=== PATIENT | female | born 1950 | race Asian ===

== ENCOUNTER → 2020-05-03 13:51 | Outpatient (BNVA) | payer MEDICARE, SELFPAY | PROVIDERS: PCP Internal Medicine; Referring Provider Internal Medicine; Visit Provider Orthopaedic Surgery | DX: M17.11 Unilateral primary osteoarthritis, right knee (principal) | CPT/HCPCS: 99212 ==

== ENCOUNTER 2020-05-24 12:41 | Outpatient (REF) | payer MEDICARE, SELFPAY ==
[2020-05-24 14:20] LABS: Estimated Average Glucose 171 mg/dL; Hemoglobin A1c % 7.6 %
== END 2020-05-24 12:42 | disposition home or self-care (01) ==
LOC: HO.HMGCLDS 12:41
PROVIDERS: PCP Internal Medicine; Visit Provider Orthopaedic Surgery
DX: Z01.812 Encounter for preprocedural laboratory examination (principal)
CPT/HCPCS: 83036

== ENCOUNTER 2020-08-03 09:47 | Outpatient (REF) | payer MEDICARE, SELFPAY ==
[2020-08-03 11:24] LABS: MANUAL DIFF FLAG NO
[2020-08-03 11:38] LABS: Basophils Absolute Auto 0.1 X10*3/uL (0.0-0.2); Basophils Percent Auto 1.7 % (0-2); Eosinophils Absolute Auto 0.3 X10*3/uL (0.0-0.4); Hematocrit 44.2 % (37-47); Hemoglobin 14.1 g/dl (12.0-16.0); Imm Gran Abs Auto 0.02 X10*3/uL (0.00-0.03); Imm Gran Pct Auto 0.3 % (0.0-0.4); Lymphocytes Absolute Auto 2.5 X10*3/uL (1.2-4.9); Lymphocytes Percent Auto 34.6 % (20-40); Mean Corpuscular HGB Conc 31.9 g/dl (31.0-35.0); Mean Corpuscular Hemoglobin 27.9 pg (27.0-33.0); Mean Corpuscular Volume 87.4 fL (80-98); Mean Platelet Volume 9.6 fL (9.4-12.3); Monocytes Absolute Auto 0.6 X10*3/uL (0.1-1.2); Monocytes Percent Auto 8.3 % (2-11); Neutrophils Absolute Auto 3.7 X10*3/uL (2.0-8.3); Neutrophils Percent Auto 51.1 % (45-73); Platelet Count 338 X10*3/uL (160-400); Red Blood Count 5.06 X10*6/uL (4.20-5.50); Red Cell Distribution Width 12.6 % (11.0-16.0); White Blood Count 7.2 X10*3/uL (4.8-10.8)
[2020-08-03 12:11] LABS: Estimated Average Glucose 169 mg/dL; Hemoglobin A1c % 7.5 %
[2020-08-03 12:16] LABS: Alanine Aminotransferase 30 U/L (0-31); Albumin Level 4.6 g/dL (3.5-5.0); Alkaline Phosphatase 62 U/L (39-117); Anion Gap 13 (12-20); Aspartate Amino Transferase 29 U/L (5-31); Bilirubin Total 0.6 mg/dL (0.0-1.0); Blood Urea Nitrogen 17 mg/dL (9-16); Calcium 9.5 mg/dL (8.4-10.2); Carbon Dioxide 30 mmol/L (22-29); Chloride 103 mmol/L (96-108); Cholesterol 156 mg/dL; Estimated Glomerular Filt Rate > 60; Glucose Fasting 144 mg/dL (60-99); HDL Cholesterol 56 mg/dL; LDL Cholesterol Calculated 71 mg/dl; Potassium 4.7 mmol/L (3.3-5.1); Sodium 141 mmol/L (135-145); Total Protein 7.7 g/dL (6.5-8.0); Triglycerides 146 mg/dL
[2020-08-03 12:17] LABS: TSH reflex Free T4 1.57 uIU/mL (0.32-4.0); Vitamin D 25-OH Total 25.3 ng/mL (>30)
[2020-08-03 12:26] LABS: Creatinine Urine 136.06 mg/dL; Microalbum/Creatinine Ratio Ur 59.5 ug/mg cr
[2020-08-05 11:11] LABS: Folate 19.2 ng/mL (> or = 4.0); Vitamin B12 591 pg/mL (200-900)
== END 2020-08-03 09:48 | disposition home or self-care (01) ==
LOC: HO.HMGCLDS 09:47
PROVIDERS: PCP Internal Medicine; Visit Provider Internal Medicine
DX: E78.5 Hyperlipidemia, unspecified (principal); I10 Essential (primary) hypertension; E11.9 Type 2 diabetes mellitus without complications; Z78.0 Asymptomatic menopausal state
CPT/HCPCS: 36415; 80053; 80061; 82043; 82306; 82607; 82746; 83036; 84443; 85025

== ENCOUNTER → 2020-10-25 11:26 | Outpatient (BNVA) | payer MEDICARE, SELFPAY | PROVIDERS: PCP Internal Medicine; Referring Provider Internal Medicine; Visit Provider Physician Assistant | DX: Z12.11 Encounter for screening for malignant neoplasm of colon (principal) | CPT/HCPCS: 99212 ==

== ENCOUNTER 2020-12-01 06:50 | Day surgery (SDC) | payer MEDICARE, SELFPAY ==
[2020-11-24 10:23] VITALS: BMI 24.2
--- NOTE | 2020-11-30 08:48 | HO.ANESPROP2 ---
Documented by User: Courtney Parmar 11/30/20 08:50 HPI - Anesthesia Eval Consult details Narrative: 70yo F for Colonoscopy PMFSH Active Problems Active Problems: All Active Problems (Updated 10/25/20 @ 11:43 by Angelica Bo PA-C) Encounter for screening colonoscopy (Acute) Vitamin D deficiency (Acute) Diabetes mellitus with hyperglycemia, without long-term current use of insulin (Acute) Diabetes mellitus, without long-term current use of insulin (Acute) Essential hypertension (Acute) Dyslipidemia (Acute) Primary osteoarthritis of right knee (Acute) Past Medical History Medical History (Updated 11/30/20 @ 08:49 by Courtney Parmar) Diabetes mellitus Dyslipidemia Essential hypertension History of nephrolithotomy with removal of calculi Hypertension Primary osteoarthritis of knees, bilateral Vitamin D deficiency Family History Family History Mother Tuberculosis Surgical History Surgical History History of History of thyroid surgery Social History Social History Household Members: Spouse Alcohol intake: never Patient Tobacco Use Status: Never used Tobacco Advance Directives: No Advance Directives Information Provided: No Current occupational status: employed 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 Allergies Allergy/AdvReac Type Severity Reaction Status Date / Time aspirin [ASPIRIN] Allergy Intermediate RASH Verified 09/03/20 21:40 Exam Exam Date and Time: November 30, 2020 0848 Height,Weight and Vital Signs: Height 4 ft 11 in Weight 54.431 kg Pertinent Lab Results Pertinent Lab Results: Laboratory Tests 08/03/20 08/03/20 09:55 09:55 WBC 7.2 Hgb 14.1 Hct 44.2 Plt Count 338 Sodium 141 Potassium 4.7 Chloride 103 Carbon Dioxide 30 H BUN 17 H Creatinine 0.87 Assessment and Plan Assessment Anesthesia Assessment: Chart Reviewed Documented by User: Ebony Barrigaloni 12/01/20 07:19 PMFSH Past Medical History Medical History (Updated 11/30/20 @ 08:49 by Courtney Parmar) Diabetes mellitus Dyslipidemia Essential hypertension History of nephrolithotomy with removal of calculi Hypertension Primary osteoarthritis of knees, bilateral Vitamin D deficiency Family History Family History Mother Tuberculosis Surgical History Surgical History History of History of thyroid surgery Social History Social History Household Members: Spouse Alcohol intake: never Patient Tobacco Use Status: Never used Tobacco Advance Directives: No Advance Directives Information Provided: No Current occupational status: employed 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
[2020-12-01 07:26] LABS: Glucose, Whole Blood 119 mg/dL (60-115)
[2020-12-01 07:29] VITALS: BP 127/69; PULSE 83; RESP 18; TEMP 36.2; O2SAT 98
[2020-12-01] MEDS: Lactated Ringers 1,000 ML 100 ML IVCONT (07:42)
--- NOTE | 2020-12-01 08:14 | W.PM.OPN ---
Operative Note Operative Note Date of Service: 12/01/20 Narrative: Pre-op diagnosis: colon cancer screening Post-op diagnosis: other ( colon polyps, diverticulosis, rectal prolapse) Procedure: COLONOSCOPY TILL CECUM WITH BIOPSIES Consent: Indications for the procedure and potential complications of bleeding, perforation, reaction to medications and missed diagnosis were discussed with the patient and informed consent was obtained. Instrument: Olympus PCF H 190 L variable stiffness pediatric colonoscope Monitoring: Vital signs and clinical assessment, intermittent blood pressure monitoring, continuous EKG monitoring, Pulse oximetry and Carbon Dioxide monitoring were done throughout the procedure. Colon withdrawl time was 18 minutes. Procedure: The patient was placed in the left lateral decubitis position and pre-procedure medications were administered. After a digital rectal examination of the ano-rectum, the video colonoscope was inserted into the rectum and advanced through the colon to the cecum. The colonoscope was slowly withdrawn in a retrograde panoramic fashion and the colon mucosa was carefully examined including a retroflexed view of the rectum. Findings and interventions are described below. Procedure Difficulty: Without difficulty Findings: Terminal Ileum: Not evaluated Cecum: a 3-4 mm sessile polyp removed with a cold bx. Ascending Colon: A 4-5 mm sessile polyp removed with the cold biopsy and moderate diverticulosis Transverse Colon: A few 4-5 mm diminutive appearing polyps - one removed with a cold biopsy. Moderate diverticulosis Descending Colon: Moderate diverticulosis Sigmoid Colon: Moderate diverticulosis Rectum: Two 4-5 mm ulcerated polyps in the distal rectum - biopsied. Ano-rectum: Lax anal sphincter with edematous and erythematous folds suggestive of rectal prolapse. Colon preparation: Excellent Impression and Post Procedure Diagnosis: Colonoscopy Findings: Five small/diminutive appearing polyps removed Moderate diverticulosis seen in the entire colon Lax anal sphincter with edematous and erythematous folds suggestive of rectal prolapse. Plan: Await pathology results Patient has an appointment on 12/14/20 in the GI Clinic with GERALDO Foster. Repeat Colonoscopy interval based on path results - in 3-5 years if polyps are adenomatous and 10 years if polyps are hyperplastic. Above findings were reviewed with the patient and colon polyps, Rectal prolapse and diverticulosis handouts were given in the discharge area Surgeon: Francis Hernandez MD Anesthesia: MAC (Dr Sultana) Was an Solar Electric Practitioner used for this Procedure?: Yes Solar Electric Practitioner: Luiza Deluna Estimated blood loss (mL): 0 Pathology: other (A: CECAL POLYP B: ASCENDING COLON POLYP C: TRANSVERSE COLON POLYP D: RECTAL POLYPS) Condition: stable Disposition: PACU
--- NOTE | 2020-12-01 08:14 | MHC.SHP ---
Pre-Procedural Eval Section A Date of Service: 12/01/20 The patient is an INPATIENT: No The History & Physical has been completed within 30 days and I have reviewed it.: No Section B Chief Complaint: Screening Relevant Family History (Specify if Yes): No Relevant Social History: None Present Medications: see Short Stay Collaborative assessment Medical History: Significant History (Diabetes mellitus with hyperglycemia, without long-term current use of insulin Diabetes mellitus, without long-term current use of insulin Dyslipidemia Essential hypertension History of nephrolithotomy with removal of calculi Hypertension Primary osteoarthritis of knees, bilateral Vitamin D deficien) History of Previous Operations: Relevant previous surgery/procedure and date(s) (C section, thyroid surgery) Allergies: Allergies Allergy/AdvReac Type Severity Reaction Status Date / Time aspirin [ASPIRIN] Allergy Intermediate RASH Verified 12/01/20 07:28 Review of Systems Sugical H&P ROS: Negative: Constitution, Cardiovascular, Respiratory and Gastrointestinal Exam Surgical H&P Exam: Normal: Heart, Normal: Lungs, Normal: Extremities and Normal: Abdomen Plan Diagnosis/Plan: Unchanged I have reviewed the history and physical and performed a pertinent physical examination on my patient. No changes have occurred unless specified.
[2020-12-01 08:50] VITALS: BP 104/68; PULSE 82; RESP 16; TEMP 37; O2SAT 98
[2020-12-01 09:05] VITALS: BP 134/76; PULSE 78; RESP 18; TEMP 37; O2SAT 98
== END 2020-12-01 09:35 | disposition home or self-care (01) ==
PROVIDERS: PCP Internal Medicine; Visit Provider Internal Medicine Gastroenterology
PROC: 0DJD8ZZ Inspection of Lower Intestinal Tract, Via Natural or Artificial Opening Endoscopic (ICD-10-PCS; CPT 45378; principal; 2020-12-01 08:20)
DX: Z12.11 Encounter for screening for malignant neoplasm of colon (principal); K63.5 Polyp of colon; K62.1 Rectal polyp; K57.30 Diverticulosis of large intestine without perforation or abscess without bleeding; K62.3 Rectal prolapse; E11.65 Type 2 diabetes mellitus with hyperglycemia; I10 Essential (primary) hypertension; E78.5 Hyperlipidemia, unspecified; E55.9 Vitamin D deficiency, unspecified; M17.0 Bilateral primary osteoarthritis of knee; Z79.84 Long term (current) use of oral hypoglycemic drugs; Z79.899 Other long term (current) drug therapy; Z87.442 Personal history of urinary calculi; Z88.8 Allergy status to other drugs, medicaments and biological substances
CPT/HCPCS: 45380; 82947; 88305

== ENCOUNTER 2020-12-13 08:12 | Outpatient (REF) | payer MEDICARE, SELFPAY ==
[2020-12-13 11:10] LABS: MANUAL DIFF FLAG NO
[2020-12-13 11:21] LABS: Basophils Absolute Auto 0.1 X10*3/uL (0.0-0.2); Basophils Percent Auto 1.2 % (0-2); Eosinophils Absolute Auto 0.3 X10*3/uL (0.0-0.4); Hematocrit 41.7 % (37-47); Hemoglobin 12.9 g/dl (12.0-16.0); Imm Gran Abs Auto 0.01 X10*3/uL (0.00-0.03); Imm Gran Pct Auto 0.2 % (0.0-0.4); Lymphocytes Percent Auto 30.9 % (20-40); Mean Corpuscular HGB Conc 30.9 g/dl (31.0-35.0); Mean Corpuscular Hemoglobin 27.3 pg (27.0-33.0); Mean Corpuscular Volume 88.3 fL (80-98); Mean Platelet Volume 9.4 fL (9.4-12.3); Monocytes Absolute Auto 0.6 X10*3/uL (0.1-1.2); Neutrophils Absolute Auto 3.5 X10*3/uL (2.0-8.3); Neutrophils Percent Auto 53.7 % (45-73); Platelet Count 323 X10*3/uL (160-400); Red Blood Count 4.72 X10*6/uL (4.20-5.50); Red Cell Distribution Width 12.5 % (11.0-16.0); White Blood Count 6.4 X10*3/uL (4.8-10.8)
[2020-12-13 11:38] LABS: Estimated Average Glucose 143 mg/dL; Hemoglobin A1c % 6.6 %
[2020-12-13 11:46] LABS: Alanine Aminotransferase 19 U/L (0-31); Anion Gap 12 (12-20); Aspartate Amino Transferase 23 U/L (5-31); Blood Urea Nitrogen 13 mg/dL (9-16); Calcium 9.4 mg/dL (8.4-10.2); Carbon Dioxide 30 mmol/L (22-29); Chloride 106 mmol/L (96-108); Cholesterol 151 mg/dL; Estimated Glomerular Filt Rate > 60; Glucose Fasting 114 mg/dL (60-99); HDL Cholesterol 54 mg/dL; LDL Cholesterol Calculated 64 mg/dl; Potassium 4.5 mmol/L (3.3-5.1); Sodium 143 mmol/L (135-145); Triglycerides 165 mg/dL
[2020-12-13 11:52] LABS: Creatinine Urine 95.08 mg/dL; Microalbum/Creatinine Ratio Ur 26.2 ug/mg cr
[2020-12-13 12:11] LABS: Vitamin D 25-OH Total 40.2 ng/mL (>30)
== END 2020-12-13 08:13 | disposition home or self-care (01) ==
LOC: HO.HMGCLDS 08:12
PROVIDERS: PCP Internal Medicine; Visit Provider Internal Medicine
DX: E11.65 Type 2 diabetes mellitus with hyperglycemia (principal); E55.9 Vitamin D deficiency, unspecified; E78.5 Hyperlipidemia, unspecified; I10 Essential (primary) hypertension
CPT/HCPCS: 36415; 80048; 80061; 82043; 82306; 83036; 84450; 84460; 85025

== ENCOUNTER 2025-04-14 08:13 | Emergency (ER) | payer MEDICARE, SELFPAY ==
--- OUTSIDE RECORDS SUMMARY | 2024-04-20 10:30 | XMS_ITS ---
Author Organization [facility] Address [address] [place] [address] Care Team Providers Care Resistor Coater Name Role Phone Jean Marie Mccrary Primary Care Provider Unavailab Norma Mao Unavailable [phone] Medications Medication SIG (Take, Route, Frequency, Duration) Notes Start Date End Date Status metFORMIN HCl 1000 MG Oral; Duration: 90 Days Active Calcium Carb-Cholecalciferol 500-10 MG-MCG TAKE 1 TABLET BY MOUTH TWICE A DAY Oral; Duration: 90 Days Active Citalopram Hydrobromide 10 MG Oral; Duration: 90 Days Acti ve Lisinopril 5 MG TAKE 1/2 TABLET BY M OUTH DAILY Oral; Duration: 90 Days Active Atorvastatin Calcium 10 MG TAKE 1 TABLET BY MOUTH EVERY DAY Oral; Duration: 90 Days Active Ammonium Lactate 12 % 1 application Exte rnally Twice a day; Duration: 30 days Active Encounters Encounter Location Date Provider Diagnosis [address] [address] 04/20/2024 Norma Michael Plan Of Treatment Next Appt Details Provider Name:Norma Michael , 07/21/2025 03:00:00 PM, [address] [place], [address], Progress Notes * MISAEL KaleyReiB: 2 (75 yo F)Acc No.[id number]:04/20/2024 Progress Note Patient: Chelsy VELASCOa Provider: Mega Michael DPM :1950 A ge:74 Y S ex:Female Date:04/20/2024 Address[address] [place], [id number] Pcp:Jean Marie Mccrary Subjective: * Chief Complaints: * * Medical History: * Medications: T aking Atorvastatin Calcium 10 MG Tablet TAKE 1 TABLET BY MOUTH EVERY DAY Oral , Taking Lisinopril 5 MG Tablet TAKE 1/2 TABLET BY MOUTH DAILY Oral , Taking Citalopram Hydrobromide 10 MG Tablet Oral , Taking Calcium Carb-Cholecalciferol 500-10 MG- MCG Tablet TAKE 1 TABLET BY MOUTH TWICE A DAY Oral , Taking metFORMIN HCl 1000 MG Tablet Oral , Taking Ammonium Lactate 12 % Cream 1 application Externally Twice a day Objective: * Vitals: Assessment: Plan: * Treatment: * Images: * The named appointment provid er may or may not be the originator of this progress note, and it is not deemed complete until electronically signed by the appointment provider. Sign off status: Pending * Provider: Mega Michael DPM Date: 06/20/2023 Generated for Nita theodore/Sherie/Yuliet on: 06/14/2024 12:57 PM EST
--- OUTSIDE RECORDS SUMMARY | 2024-05-12 06:15 | XMS_ITS ---
Author Organization [facility] Address [address] [place] [address] Care Team Providers Care Bush And Vine Farmer Fruit [employer] Name Role Phone Jean Marie Mccrary Primary Care Provider Unavailab Norma Mao Unavailable [phone] Encounters Encounter Location Date Provider Diagnosis [address] [address] 05/12/2024 Norma Michael Plan Of Treatment Next Appt Details Provider Name:Norma A Alec , 07/21/2025 03:00:00 PM, [address] [place], [address], Progress Notes * RAMIROSWETHAChelsyaDOB: 2 (75 yo F)Acc No.[id number]:05/12/2024 Progress Note Patient: Trisha VELASCO Provider: Mega Michael DPM :1950 A ge:74 Y S ex:Female Date:05/12/2024 [address], [place], [id number] Pcp:Jean Marie Mccrary Subjective: * Chief Complaints: * * Medical History: Objective: * Vitals: Assessment: Plan: * Treatment: * Images: * The named appointment provid er may or may not be the originator of this progress note, and it is not deemed complete until electronically signed by the appointment provider. Sign off status: Pending * Provider: Mega Michael DPM Date: 07/13/2023 Generated for Nita Sanchez on: 06/14/2024 12:57 PM EST
--- OUTSIDE RECORDS SUMMARY | 2024-08-16 10:15 | XMS_ITS ---
Author Organization [facility] Address [address] [place] [address] Care Team Providers Care Electromatic Typist Name Role Phone Jean Marie Mccrary Primary Care Provider Unavailab Norma Mao Unavailable [phone] REASON FOR VISIT SEEN ON 07/21/2024 Encounters Encounter Location Date Provider Diagnosis [address] [address] 08/16/2024 Norma Alec Plan Of Treatment Next Appt Details Provider Name:Norma Michael , 07/21/2025 03:00:00 PM, [address] [place] [address], [phone], Progress Notes * Chelsy DOUGLASaDOB: 2 (75 yo F)Acc No.[id number]:08/16/2024 Progress Note Patient: Trisha VELASCO Provider: Mega Michael DPM :1950 A ge:74 Y S ex:Female Date:08/16/2024 [address] [id number] Pcp:Jean Marie Mccrary Subjective: * Chief Complaints: * 1 . SEEN ON 07/21/2024. * Medical History: Objective: * Vitals: Assessment: Plan: * Treatment: * Images: * The named appointment provid er may or may not be the originator of this progress note, and it is not deemed complete until electronically signed by the appointment provider. Sign off status: Pending * Provider: Mega Michael DPM Date: 0 08/16/2024 Generated for Nita Brown/Yuliet on: 06/14/2024 12:58 PM EST
--- NOTE | ~2025-04-14 | XR_ITS ---
EXAMINATION: XR SHOULDER, LEFT CLINICAL INFORMATION: fall, pain COMPARISON: None available. TECHNIQUE: AP view in neutral internal rotation and Y-view projection of the left shoulder. FINDINGS: No acute cortical disruption or malalignment. 5 mm calcification at the supraspinatus tendon region. Sclerosis along the articular surface of the acromioclavicular joint. No lytic or blastic lesions. Vascular clips overlapping the left lower neck. XR/XR shoulder LT min 2V IMPRESSION: Calcific tendinosis/tendinopathy, supraspinatus. No acute fracture or dislocation. Electronically signed by: Adalberto Louise MD 04/14/2025 10:39 AM [facility]
--- NOTE | ~2025-04-14 | CT_ITS ---
EXAMINATION: CT HEAD WITHOUT CONTRAST CLINICAL INFORMATION: fall, head injury COMPARISON: May 05, 2016 TECHNIQUE: Contiguous axial imaging was performed from the skull base to vertex without intravenous administration of contrast. This CT examination was performed using dose optimization techniques as appropriate, variously including the following: *Automated exposure control *Adjustment of mA and/or kV according to patient size (this includes techniques or standardized protocols for targeted exams where dose is matched to indication/reason for exam; i.e. extremities or head) *Use of iterative reconstruction technique DLP: 566 mGy-cm FINDINGS: No acute cortical disruption in the bony calvarium. No acute intracranial hemorrhage, mass effect, midline shift, hydrocephalus or herniation. Jackson-white matter differentiation is normal. Bilateral multifocal patchy and confluent subcortical deep white matter and deep periventricular white matter hypodensities involving centrum semiovale and wren radiata. Craniocervical junction is intact with normal position of the cerebellar tonsils. Sellar/suprasellar region demonstrated CSF prominence suggesting diaphragmatic sella insufficiency. Prominence of the extra-axial CSF spaces cerebral sulci and bifrontal parietal lobes. Tympanic cavities and mastoid cells are aerated with poor pneumatization of the right mastoid. No air-fluid levels in the paranasal sinuses. For pneumatization of the frontal sinuses. No gross hematoma, intraconal or extraconal compartments of the orbits. Calcified plaques in the cavernous supracavernous segments both ICAs. CT/CT head/brain wo IV con IMPRESSION: No acute fracture, bony calvarium. No acute intracranial hemorrhage. 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 Bifrontal biparietal lobe atrophy. Electronically signed by: Adalberto Louise MD 04/14/2025 10:28 AM [facility]
[2025-04-14 08:19] VITALS: BP 132/63; PULSE 86; RESP 18; TEMP 36.3; O2SAT 97; BMI 23.4
--- NOTE | 2025-04-14 08:28 | ED_ITS ---
HPI - General Adult General Chief complaint: Fall Stated complaint: injury Time Seen by Provider: 04/14/25 08:27 History of Present Illness ED Provider: Zach LAMA narrative: The patient is a 75-year-old woman with a history of type 2 diabetes who says that she was going into a department store yesterday when she fell. She landed primarily on her left side. I believe she landed mostly on her left shoulder. She thinks she may have hit her head. I do not believe there was any loss of consciousness. Somebody helped her up off the floor. She felt somewhat dizzy and lightheaded. She informed somebody in the store that she had fallen but no ambulance was called and ultimately she went home with her boyfriend. During the evening and during the night she had pain in the region of her left shoulder and also in the region of her left thigh. She took acetaminophen and applied lidocaine patches to her left shoulder and her left thigh. This morning she felt lightheaded and dizzy. She felt pain in her left shoulder. She felt some pain with walking. 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 She felt that she was too uncomfortable to do her [employer] work today. She had her partner drive her to her work place where she reported that she was feeling unwell and she then came to the emergency room. She does not have any chest pain. She does not have any respiratory symptoms. No pain with breathing. No neck pain or pain with moving her neck. No abdominal pain or vomiting. Related Data Previous Rx's ?Medication ?Instructions ?Recorded cholecalciferol (vitamin D3) 125 125 mcg PO DAILY #30 caps 08/24/20 mcg (5,000 unit) capsule lisinopril 5 mg tablet 5 mg PO DAILY #90 tabs 09/21 metformin 1,000 mg tablet 1,000 mg PO BID #180 tabs sitagliptin phosphate 100 mg 100 mg PO DAILY #30 tabs 06/16/21 tablet (Januvia) meclizine 25 mg tablet 25 mg PO BID PRN dizziness 3 0 days 08/08/21 #60 tabs rosuvastatin 10 mg tablet 10 mg PO DAILY #90 tabs 07/25 09/14 Allergies Allergy/AdvReac Type Severity Reaction Status Date / Time aspirin (ASPIRIN) Allergy Intermediate RASH Verified 04/14/25 08:23 Review of Systems 2 Review of Systems: Yes all other systems are reviewed and are negative COUNT INCLUDES THE [facility] Past Medical History Medical History (Updated 04/14/25 @ 11:51 by Alverto Serrano MD) History of nephrolithotomy with removal of calculi Vitamin D deficiency Essential hypertension Dyslipidemia Diabetes mellitus Hypertension Primary osteoarthritis of knees, bilateral Surgical History History of thyroid surgery History of Family History Family History Mother Tuberculosis Social History Social History Household Members: Spouse Alcohol intake: never Patient Tobacco Use Status: Never used Tobacco Advance Directives: No Advance Directives Information Provided: No Do you have a plan to hurt others: No Plan Current occupational status: employed 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 She is awake and alert. She seems mildly uncomfortable. HENMT Other: No obvious signs of facial or head trauma. No raccoon eyes. No bauer sign. The face is symmetrical. Tongue is midline. Eyes Other: Pupils are round equal, conjunctivae are clear, extraocular movements intact General: appearance normal, both eyes and all related structures Neck Other: No posterior midline C-spine tenderness. No significant pain with range of motion of the neck. C-spine is clinically clear. Chest Other: No chest wall tenderness. No subcutaneous emphysema. No crepitus Resp Effort & Inspection: normal respiratory effort Auscultation: clear to auscultation bilaterally GI Other: ABDOMEN IS SOFT AND NONTENDER Back/Spine/Pelvis Other: No midline vertebral tenderness in the back. Skin Other: The skin is intact. I do not appreciate any bruising. Neuro Other: The patient is awake and alert with a normal mental status. Normal orientation and cognition. Cranial nerves 2-12 are intact. Her strength seems intact in all 4 extremities although she has weakness of the left arm that seems to be secondary to pain that the left shoulder. I do not think there was any actual weakness which is not related to pain. Extrem Other: The patient has generalized tenderness in the region of the left shoulder without deformity. With passive range of motion I can put the humerus through a reasonably good range of motion. I can put a left hip and knee through an excellent range of motion. Medications Administered Discontinued Medications Generic Name Dose Route Start Last Admin Trade Name Lion PRN Reason Stop Dose Admin Acetaminophen 975 mg 04/14/25 11:47 04/14/25 12:10 Acetaminophen 325 Mg Tablet PO 04/14/25 11:48 975 mg ONCE ONE Administration Medical Decision Making Medical Decision Making [facility] Narrative: The patient is a 75-year-old female who presents for evaluation of a fall she experienced yesterday outside of a department store. My suspicion is that this was a mechanical fall, a trip and fall, although the patient was not specifically saying that that was the case. She may have had a mild head injury. My suspicion for a dangerous head injury is not very high. Her C-spine is clinically clear. She seems to have a lot of pain in the region of the left shoulder. This seems to be her primary complaint. She also complains somewhat of feeling lightheaded and dizzy. An EKG is unremarkable. Labs show an unremarkable CBC and metabolic panel. My overall impression is that the patient has a mechanical fall yesterday and has a left shoulder injury today. Her x-ray is negative. She will be given a sling. She is given a work note. Lab Data 04/14/25 08:54 04/14/25 08:54 Labs: Lab Results 04/14/25 Range/Units 08:54 WBC 11.9 H (4.8-10.8) X10*3/uL RBC 4.46 (4.20-5.50) X10*6/uL Hgb 12.3 (12.0-16.0) g/dl Hct 38.4 (37.0-47.0) % MCV 86.1 (80.0-98.0) fL MCH 27.6 (27.0-33.0) pg MCHC 32.0 (31.0-35.0) g/dl RDW 12.7 (11.0-16.0) % Plt Count 216 (160-400) X10*3/uL MPV 9.6 (9.4-12.3) fL Immature Gran % (Auto) 0.4 (0.0-0.4) % Neut % (Auto) 74.1 H (45-73) % Lymph % (Auto) 14.0 L (20-40) % Charlton % (Auto) 8.9 (2-11) % Eos % (Auto) 1.8 (0-4) % Baso % (Auto) 0.8 (0-2) % Lymph # (Auto) 1.7 (1.2-4.9) X10*3/uL Charlton # (Auto) 1.1 (0.1-1.2) X10*3/uL Eos # (Auto) 0.2 (0.0-0.4) X10*3/uL Baso # (Auto) 0.1 (0.0-0.2) X10*3/uL Abs Immat Gran (auto) 0.05 H (0.00-0.03) X10*3/uL Absolute Neuts (auto) 8.8 H (2.0-8.3) x10*3/uL Absolute Nucleated RBC 0.000 (0.0-0.012) X10*3/uL Nucleated RBC % (auto) 0.0 (0.0-0.2) /100WBC Sodium 142 (135-145) mmol/L Potassium 4.7 (3.3-5.1) mmol/L Chloride 107 (96-108) mmol/L Carbon Dioxide 27 (22-29) mmol/L Anion Gap 13 (12-20) BUN 15 (9-16) mg/dL Creatinine 0.78 (0.5-1.4) mg/dL Estim Creat Clear Calc 47.5 Estimated GFR > 60 Random Glucose 170 H (60-115) mg/dL Calcium 9.5 (8.4-10.2) mg/dL Total Bilirubin 0.2 (0.0-1.0) mg/dL AST 25 (5-31) U/L ALT 17 (0-31) U/L Alkaline Phosphatase 61 (39-117) U/L Total Protein 7.3 (6.5-8.0) g/dL Albumin 4.1 (3.5-5.0) g/dL Independent Interpretation I performed an independent interpretation of an: EKG Interpretation: EKG at 09:30 shows normal sinus rhythm at 78 beats per minute. This is an unremarkable EKG. Discharge Plan Discharge Clinical Impression: Contusion of left shoulder, Fall Patient Disposition: Home, Self-Care Additional Instructions: Please wear the sling for comfort. Please plan on resting over the next several days. My hope is that you will be feeling better by Friday so that you are able to returned to work on Friday. You have a work note for this purpose. Use acetaminophen (Tylenol) as needed for pain. Wear the sling for comfort. You may ice her shoulder. may use ice for your shoulder. Follow-up soon with your regular doctor. Return to t you may ice her shoulder. Return to the emergency department if significantly worse. he emergency room if you are significantly worse. Prescriptions: No Action lisinopril 5 mg tablet 5 mg PO DAILY Qty: 90 4RF metformin 1,000 mg tablet 1,000 mg PO BID Qty: 180 1RF Januvia 100 mg tablet 100 mg PO DAILY Qty: 30 5RF meclizine 25 mg tablet 25 mg PO BID PRN (Reason: dizziness) 30 Days Qty: 60 0RF rosuvastatin 10 mg tablet 10 mg PO DAILY Qty: 90 3RF cholecalciferol (vitamin D3) 125 mcg (5,000 unit) capsule 125 mcg PO DAILY Qty: 30 5RF Referrals: Jean Marie Mccrary MD [Primary Care Provider, Internal Medicine] Stand Alone Forms: Work/School Release Interventions: ED Discharge Assessment Last Done: 04/14/25 12:18 Discharge Date/Time: 04/14/25 12:19 Print Language: Danish
--- NOTE | 2025-04-14 08:44 | ECG_ITS ---
Test Reason : FALL Blood Pressure : */* mmHG Vent. Rate : 78 BPM Atrial Rate : 78 BPM P-R Int : 160 ms QRS Dur : 76 ms QT Int : 376 ms P-R-T Axes : 53 11 28 degrees QTcB Int : 428 ms Normal sinus rhythm Normal ECG When compared with ECG of 21-Jan-2003 08:28, No significant change was found Referred By: Alverto Serrano Electronically Signed By: RON HUMPHRIES
[2025-04-14 08:58] LABS: MANUAL DIFF FLAG NO
[2025-04-14 09:06] LABS: Hematocrit 38.4 % (37.0-47.0); Hemoglobin 12.3 g/dl (12.0-16.0); Imm Gran Abs Auto 0.05 X10*3/uL (0.00-0.03); Imm Gran Pct Auto 0.4 % (0.0-0.4); Lymphocytes Absolute Auto 1.7 X10*3/uL (1.2-4.9); Mean Corpuscular HGB Conc 32.0 g/dl (31.0-35.0); Mean Corpuscular Hemoglobin 27.6 pg (27.0-33.0); Mean Corpuscular Volume 86.1 fL (80.0-98.0); NRBC Abs Auto 0.000 X10*3/uL (0.0-0.012); NRBC Pct Auto 0.0 /100WBC (0.0-0.2); Platelet Count 216 X10*3/uL (160-400); Red Blood Count 4.46 X10*6/uL (4.20-5.50); White Blood Count 11.9 X10*3/uL (4.8-10.8)
[2025-04-14 09:21] LABS: Alanine Aminotransferase 17 U/L (0-31); Albumin Level 4.1 g/dL (3.5-5.0); Alkaline Phosphatase 61 U/L (39-117); Anion Gap 13 (12-20); Aspartate Amino Transferase 25 U/L (5-31); Blood Urea Nitrogen 15 mg/dL (9-16); Calcium 9.5 mg/dL (8.4-10.2); Carbon Dioxide 27 mmol/L (22-29); Chloride 107 mmol/L (96-108); Creatinine Clr Calc Pharmacy 47.5; Estimated Glomerular Filt Rate > 60; Potassium 4.7 mmol/L (3.3-5.1); Sodium 142 mmol/L (135-145); Total Protein 7.3 g/dL (6.5-8.0)
[2025-04-14 12:18] VITALS: BP 152/80; PULSE 86; RESP 16; TEMP 36.7; O2SAT 97
--- OUTSIDE RECORDS SUMMARY | 2025-04-14 12:58 | XMS_ITS | Patient Health Record ---
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 [employer] Name Role Phone Jean Marie Mccrary Primary Care Provider Unavailab Norma Mao Unavailable [phone] Sharee Keith Unavailable [phone] Allergies Allergen (clinical drug ingredient) Drug/Non Drug Allergy documented on EMR Reaction Allergy Type Onset Date Status aspirin Aspirin Unknown Drug Allergy Active Results Component Value Reference Range Notes HEMOGLOBIN A1C (GLYCOHEMOGLO BIN) Reviewed date:07/21/2024 10:55:01 AM Interpretation: Performing Lab: Notes/Report: HEMOGLOBIN A1C % (HH) 6.1 Reason For Referral No Information Medications Medication SIG (Take, Route, Frequency, Duration) Notes Start Date End Date Status Extra Depth Orthopedic Shoes (1 Pair) with Customized Heat Molded Multidensity Innersoles (3 Pair) as directed Dx: NIDDM/Polyneuropathy (E11.42), Hammertoe Foot Deformity (M20.41,M20.42), Preulcerative Skin Lesion(s) (L85.1 07/21/2024 Active metFORMIN HCl 1000 MG Oral; Duration: 90 Days Active Ammonium Lactate 12 % 1 application Exte rnally Twice a day; Duration: 30 days Active Calcium Carb-Cholecalciferol 500-10 MG-MCG TAKE 1 TABLET BY MOUTH TWICE A DAY Oral; Duration: 90 Days Active Lisinopril 5 MG TAKE 1/2 TABLET BY M OUTH DAILY Oral; Duration: 90 Days Active Citalopram Hydrobromide 10 MG Oral; Duration: 90 Days Acti ve Atorvastatin Calcium 10 MG TAKE 1 TABLET BY MOUTH EVERY DAY Oral; Duration: 90 Days Active Immunizations Vaccine Route Administration Date Status Comme nts Influenza Unknown 01/25/2024 Administered Social History Tobacco Use: Social History Observation Description Date Details (start date - stop date) Never Smoker NA - NA Tobacco use other than smoking: Question Answer Notes Are you an other tobacco user? No Tobacco Control (Standard) Question Answer Notes Tobacco use: Nonsmoker Additional Findings: Tobacco non-user Current no nsmoker AUDIT-C (Standard) Question Answer Notes Did you have a drink containing alcohol in the p ast year? No Points 0 Interpretation Negative Problems Problem Type SNOMED Code ICD Code Onset Dates Problem Status W/U Status Risk Notes Problem Polyneuropathy due to type 2 diabetes mellitus (789765851) Type 2 diabetes mellitus with diabetic polyneuropathy (E11.42) Active confirmed Vital Signs Blood pressure diastolic 75 mm Hg 01/17/2025 Height 0az79yx in 01/17/2025 Blood pressure systolic 120 mm Hg 01/17/2025 Weight 110 lbs 01/17/2025 BMI 22.99 kg/m2 01/17/2025 Procedures Procedure Date Ordered Date Performed Result Body Sit e 10893-MUABXDQ NAIL, 6 OR MORE 05/17/2024 N/A 07770-LVOK SKIN LESIONS, 2 TO 4 05/17/2024 N/A 03452-IBLBQCQ NAIL, 6 OR MORE 07/21/2024 N/A 01420-BWDM SKIN LESIONS, 2 TO 4 07/21/2024 N/A 27620-KPWAWXH NAIL, 6 OR MORE 01/17/2025 N/A 91952-Qjctzjyu Plate 01/17/2025 N/A 10407-ZTML SKIN LESIONS, 2 TO 4 01/17/2025 N/A Encounters Encounter Location Date Provider Diagnosis [facility] [address] [place] [address] 05/17/2024 Sharee Keith Type 2 diabetes mellitus with diabetic polyneuropathy E11.42 ; Tinea unguium B35.1 and Subungual hematoma of right foot, initial encounter S90.221A [facility] [address] [address] 07/21/2024 Norma Black Type 2 diabetes mellitus with diabetic polyneuropathy E11.42 ; Tinea unguium B35.1 ; Other hammer toe(s) (acquired), right foot M20.41 and Other hammer toe(s) (acquired), left foot M20.[address] [facility] [address] 01/17/2025 Norma Alec Type 2 diabetes mellitus with diabetic polyneuropathy E11.42 ; Tinea unguium B35.1 and Ingrown nail L60.0 [facility] [address] [address] 04/20/[address] [facility] [address] 05/12/[address] [facility] [address] [address] 05/17/[address] [facility] [address] 07/20/[address] [facility] [address] 11/05/2024 Norma Michael Assessments Encounter Date Diagnosis (ICD Code) Assessment Notes Treatment Notes Treatment Clinical Notes Section Notes 05/17/2024 Type 2 diabetes mellitus with diabetic polyneuropathy (ICD-10 - E11.42) 05/17/2024 Tinea unguium (ICD-10 - B35.1) 07/21/2024 Type 2 diabetes mellitus with diabetic polyneuropathy (ICD-10 - E11.42) 01/17/2025 Type 2 diabetes mellitus with diabetic polyneuropathy (ICD-10 - E11.42) 01/17/2025 Tinea unguium (ICD-10 - B35.1) 01/17/2025 Ingrown nail (ICD-10 - L60.0) 07/21/2024 Tinea unguium (ICD-10 - B35.1) 05/17/2024 Subungual hematoma of right foot, initial encounter (ICD-10 - S90.221A) 07/21/2024 Other hammer toe(s) (acquired), right foot (ICD-10 - M20.41) Patient Educated with: DIABETIC FOOT CARE INSTRUCTIONS. pdf (DIABETIC FOOT CARE INSTRUCTIONS. pdf) 07/21/2024 Other hammer toe(s) (acquired), left foot (ICD-10 - M20.42) 07/21/2024 Other 01/17/2025 Other Plan Of Treatment Pending Test Test Name Order Date 10243-TUOQKTC NAIL, 6 OR MORE 01/16/2024 61933-XLAEXOP NAIL, 6 OR MORE 05/17/2024 88950-VVJWTBO NAIL, 6 OR MORE 07/21/2024 79670-AQNGYCC NAIL, 6 OR MORE 01/17/2025 14016-Joxulbdg Plate 01/17/2025 26589-TLRR SKIN LESIONS, 2 TO 4 01/18/20 10793-VELL SKIN LESIONS, 2 TO 4 05/17/20 75784-EPHI SKIN LESIONS, 2 TO 4 07/21/19 95038-FDEP SKIN LESION 01/16/2024 Next Appt Details Provider Name:Norma Michael , 07/21/2025 03:00:00 PM, [address] [place] [address], [id number], Insurance Providers Payer Name Payer Address Payer Phone Subscriber Number Group Number Insured Name Patient Relationship to Insured Coverage Start Date Coverage End Date [employer] Claims [address] [address] [place] [address] [phone] [id number] Trisha Douglas Self - patient is the insured 4 Medical (General) History Medical History History ICD Code Anemia Back,Hip,and Knee pain Cataracts Diabetic High blood pressure Other hammer toe(s) (acquired), right fo ot M20.41 Arthritis of joint of lesser toe, right M19.071 Other hammer toe(s) (acquired), left gonzalo t M20.42 Surgical History Surgery Date(Month/Year) cataract surgery
== END 2025-04-14 12:19 | disposition home or self-care (01) ==
PROVIDERS: Emergency Provider Emergency Medicine; PCP Internal Medicine
DX: S40.012A Contusion of left shoulder, initial encounter (principal); W19.XXXA Unspecified fall, initial encounter; Y93.9 Activity, unspecified; Y92.9 Unspecified place or not applicable; Y99.9 Unspecified external cause status; R42 Dizziness and giddiness; I10 Essential (primary) hypertension; E11.9 Type 2 diabetes mellitus without complications; M25.512 Pain in left shoulder
CPT/HCPCS: 36415; 70450; 73030; 80053; 85025; 93005; 99283; 99284

== ENCOUNTER → 2025-04-14 08:43 | Outpatient (BNV) | payer MEDICARE, SELFPAY | PROVIDERS: Emergency Provider Emergency Medicine; PCP Internal Medicine; Visit Provider Radiology Diagnostic Radiology | DX: S09.90XA Unspecified injury of head, initial encounter (principal); R90.82 White matter disease, unspecified; G31.9 Degenerative disease of nervous system, unspecified; M25.512 Pain in left shoulder; M75.32 Calcific tendinitis of left shoulder; Z04.3 Encounter for examination and observation following other accident | CPT/HCPCS: 70450; 73030 ==

== ENCOUNTER → 2025-04-14 08:44 | Outpatient (BNV) | payer MEDICARE, SELFPAY | PROVIDERS: Emergency Provider Emergency Medicine; PCP Internal Medicine; Visit Provider Internal Medicine | DX: Z04.3 Encounter for examination and observation following other accident (principal) | CPT/HCPCS: 93010 ==